=== PATIENT | female | born 1940 | race Caucasian/White ===

== ENCOUNTER 2018-02-12 15:51 | Inpatient (IN) | payer BC, MEDICARE ==
[~2018-02-12] VITALS: Ht 177.8 cm; Wt 70.3 kg
[2018-02-12] MEDS ORDERED: ONDANSETRON HCL/PF 4 MG/2 ML VIAL IVP ONE (16:30)
[2018-02-12] MEDS ORDERED: MORPHINE SULFATE INJ 2 MG/ML DISP.SYRIN IV ONE ×2 (16:30→18:00)
[2018-02-12 16:34] LABS: BASOPHILS % (AUTO) 0.9 % (0.0-2.0); EOSINOPHILS % (AUTO) 1.9 % (0.0-6.0); HEMATOCRIT 33 % (33-45); HEMOGLOBIN 11.1 g/dL (11.5-14.8); LYMPHOCYTES # (AUTO) 1.4 /CMM (0.8-4.8); LYMPHOCYTES % (AUTO) 29.3 % (20.0-44.0); MEAN CORPUSCULAR HGB CONC 34 g/dl (31.0-36.0); MEAN CORPUSCULAR VOLUME 91 fL (82-100); MONOCYTES # (AUTO) 0.4 /CMM (0.1-1.30); MONOCYTES % (AUTO) 8.8 % (2.0-12.0); NEUTROPHILS # (AUTO) 2.9 /CMM (1.8-8.9); NEUTROPHILS % (AUTO) 59.1 % (43.0-81.0); PLATELET COUNT (AUTO) 131 /CMM (150-450); RDW COEFFICIENT OF VARIATION 13.4 (11.5-15.0); RED BLOOD CELL COUNT(AUTO) 3.59 MIL/uL (4.0-5.2); WHITE BLOOD COUNT (AUTO) 4.8 K/uL (4.3-11.0)
[2018-02-12] MEDS ORDERED: MORPHINE SULFATE INJ 2 MG/ML DISP.SYRIN ONE (16:38)
[2018-02-12] MEDS ORDERED: ONDANSETRON HCL/PF 4 MG/2 ML VIAL ONE (16:38)
[2018-02-12 16:41] LABS: CARBON DIOXIDE 28 mmol/L (21-32); CHLORIDE 105 mmol/L (98-107); CREATININE 0.9 mg/dL (0.6-1.3); GLUCOSE 152 mg/dL (74-106); POTASSIUM 3.5 mmol/L (3.5-5.1); SODIUM SERUM 142 mmol/L (136-145); UREA NITROGEN, BLOOD 15 mg/dL (7-18)
[2018-02-12 16:46] LABS: INR 1.37 (0.85-1.15)
[2018-02-12 16:48] LABS: ALANINE AMINOTRANSFERASE 17 U/L (12-78); ALBUMIN 3.8 g/dL (3.4-5.0); ALKALINE PHOSPHATASE 81 U/L (46-116); ASPARTATE AMINOTRANSFERASE 21 U/L (15-37); BILIRUBIN,DIRECT 0.3 mg/dL (0.0-0.2); BILIRUBIN,TOTAL 1.3 mg/dL (0.2-1.0); TOTAL PROTEIN, SERUM 6.6 g/dL (6.4-8.2)
[2018-02-12] MEDS ORDERED: POTA10TA15 PO (16:49)
[2018-02-12] MEDS ORDERED: RIVA10TA PO (16:49)
[2018-02-12] MEDS ORDERED: FURO-144 PO (16:49)
[2018-02-12] MEDS ORDERED: METO25TA6 PO (16:49)
[2018-02-12] MEDS ORDERED: FLUO10TA PO (16:49)
[2018-02-12] MEDS ORDERED: TRAZ-214 PO (16:49)
--- NOTE | 2018-02-12 16:54 | NUR ---
BIB R/A C/O R HIP PAIN AND DEFORMITY S/P TRIP AND FALL . PT AAOX3, LEGALLY BLIND. DENIES CP, SOB, DIZZINESS, N/V @ THIS TIME. MEDICATED FOR PAIN PER MD'S ORDER. GRAND DAUGHTER @ BS & WILL CONT TO MONITOR.
--- NOTE | 2018-02-12 16:58 | NUR ---
CALLED [facility] TECHNICIAN FOR A BED.
--- NOTE | 2018-02-12 16:58 | NUR ---
CALLED [employer] AUTO APPRENTICE MECHANIC WAS PAGED.
[2018-02-12] MEDS ORDERED: BIMA2.5D5 EACHEYE (17:01)
[2018-02-12] MEDS ORDERED: BRIM5DRO2 EACHEYE (17:01)
--- NOTE | 2018-02-12 17:17 | NUR ---
CALLED JULIO HORVATH, MILITARY PAY TECHNICIAN WAS PAGED.
--- NOTE | 2018-02-12 17:21 | NUR ---
DR CORMIER CALLED ON THE PHONE WITH DR ALVARADO.
[2018-02-12] MEDS ORDERED: MORPHINE SULFATE INJ 4 MG/ML DISP.SYRIN ONE (18:01)
[2018-02-12] MEDS ORDERED: ACETAMINOPHEN 325 MG TABLET PO PRN (18:30)
[2018-02-12] MEDS ORDERED: MAG HYDROX/AL HYDROX/SIMETH 30 ML UDC PO PRN (18:30)
[2018-02-12] MEDS ORDERED: MAGNESIUM HYDROXIDE 30 ML UDC PO PRN (18:30)
[2018-02-12] MEDS ORDERED: Z GUARD REMEDY 2 OZ OINT TP PRN (18:30)
[2018-02-12 18:41] LABS: TROPONIN I < 0.017 ng/mL (0.00-0.056)
[2018-02-12 18:48] LABS: CHOLESTEROL 122 mg/dL (<200); HDL CHOLESTEROL 53 mg/dL (40-60); IRON, SERUM 61 ug/dl (50-175); LDL 72 mg/dL (0-99); THYROID STIMULATING HORMONE 2.588 uIU/mL (0.358-3.74); TOTAL IRON BINDING CAPACITY 315 ug/dl (250-450); TRIGLYCERIDES 41 mg/dL (30-150)
[2018-02-12 18:53] LABS: MAGNESIUM 1.9 mg/dL (1.8-2.4); PHOSPHORUS 2.8 mg/dL (2.5-4.9)
--- NOTE | 2018-02-12 19:30 | NUR ---
MS RN OPENING NOTES: RECEIVED PT ON ROOM AIR AND IS TOLERATING WELL. FAMILY MEMBER AT BEDSIDE. PT IS A/OX3 BUT IS LEGALLY BLIND IN BOTH EYES. PT HAS AVALOS CATH AND IS ATTACHED TO DRAINAGE BAG WITH YELLOW URINE DRAINING. PT HAS IV ON R WRIST #16G AND IS PATENT AND INTACT. PT TO BE STARTED ON IV FLUIDS SOON. PT COMPLAINING OF 7/10 R HIP PAIN. CALL LIGHT WITHIN PT'S REACH. BED KEPT IN LOW, LOCKED POSITION, AND SIDE RAILS X 2UP. WILL CONTINUE TO MONITOR PT.
[2018-02-12 20:00] VITALS: BP 177/67
[2018-02-12] MEDS: METOPROLOL TARTRATE 25 MG TABLET PO SCH (20:13)
[2018-02-12] MEDS: IV NS 0.9% 1,000 ML IV PRN (20:15)
[2018-02-12] MEDS: TRAZODONE 50 MG TABLET PO SCH (21:23)
[2018-02-12] MEDS: LATANOPROST EYE DROP 0.005% 2.5 ML BOTTLE EACHEYE SCH (21:23)
[2018-02-12] MEDS: MORPHINE SULFATE INJ 2 MG/ML DISP.SYRIN IV PRN (23:22)
[2018-02-12] MEDS: ONDANSETRON HCL/PF 4 MG/2 ML VIAL IVP PRN (23:28)
[2018-02-13 05:16] VITALS: BP 113/67
[2018-02-13] MEDS: IV NS 0.9% 1,000 ML IV PRN ×3 (05:42→22:45)
--- NOTE | 2018-02-13 06:21 | NUR ---
MS RN NOTES: BILATERAL EARRINGS PLACED IN GREEN CONTAINER WITH LABEL ON IT.
--- NOTE | 2018-02-13 06:43 | NUR ---
MS RN CLOSING NOTES: ALL NEEDS WERE ATTENDED AND ANTICIPATED FOR. PT KEPT CLEAN, DRY, AND COMFORTABLE. PT RESTING IN BED COMFORTABLY AT THIS TIME. PT HAS IV AND IS BEING INFUSED WITH IV NS AT 125ML/HR. PT ALSO HAS AVALOS CATH AND IS ATTACHED TO DRAINAGE BAG WITH YELLOW URINE DRAINING. OUTPUT WAS 450ML. OFFERED PT PAIN MEDICATIONS BUT IS OK FOR NOW. CALL LIGHT WITHIN PT'S REACH. BED KEPT IN LOW, LOCKED POSITION, AND SIDE RAILS X 2UP. WILL ENDORSE TO AM NURSE FOR RENEA.
--- NOTE | 2018-02-13 07:15 | NUR ---
RN OPENING NOTES RECEIVED PATIEN T IN BED RESTING, A/OX3, ABLE TO MAKE NEEDS KNOWN. NOTED PATIENT IS LEGALLY BLIND. NO ACUTE DISTRESS, NO SOB. COMPLAINTS OF PAIN 8/10 ACHING ON RIGHT HIP, WILL ADMINISTER PAIN MEDICATION ORDERED. IV SITE INTACT AND PATENT, IVF INFUSING. AVALOS CATH IN PLACED DRAINING YELLOW CLEAR URINE. KEPT PATIENT SAFE AND COMFORTABLE. BED IN LOW/LOCKED POSITION, SIDERAILS UPX2, CALL LIGHT IN REACH. WILL CONTINUE TO MONIOTR ACCORDINGLY.
[2018-02-13] MEDS: MORPHINE SULFATE INJ 2 MG/ML DISP.SYRIN IV PRN (07:27)
[2018-02-13 08:00] VITALS: BP 126/59
[2018-02-13] MEDS: METOPROLOL TARTRATE 25 MG TABLET PO SCH ×2 (08:19→16:39)
[2018-02-13] MEDS: Fluoxetine 10 mg capsule PO SCH (08:19)
[2018-02-13] MEDS: BRIMONIDINE TARTRATE OPHT SOLN 5 ML BOTTLE EACHEYE SCH ×2 (08:20→16:40)
[2018-02-13] MEDS: TIMOLOL 0.5% SOLN OPHTH 5 ML BOTTLE EACHEYE SCH ×2 (08:21→16:40)
[2018-02-13 08:50] LABS: BASOPHILS % (AUTO) 0.6 % (0.0-2.0); EOSINOPHILS % (AUTO) 1.5 % (0.0-6.0); HEMATOCRIT 30 % (33-45); HEMOGLOBIN 9.7 g/dL (11.5-14.8); LYMPHOCYTES # (AUTO) 1.1 /CMM (0.8-4.8); LYMPHOCYTES % (AUTO) 20.6 % (20.0-44.0); MEAN CORPUSCULAR HGB CONC 33 g/dl (31.0-36.0); MEAN CORPUSCULAR VOLUME 93 fL (82-100); MONOCYTES # (AUTO) 0.6 /CMM (0.1-1.30); MONOCYTES % (AUTO) 10.1 % (2.0-12.0); NEUTROPHILS # (AUTO) 3.7 /CMM (1.8-8.9); NEUTROPHILS % (AUTO) 67.2 % (43.0-81.0); PLATELET COUNT (AUTO) 117 /CMM (150-450); RDW COEFFICIENT OF VARIATION 14.6 (11.5-15.0); WHITE BLOOD COUNT (AUTO) 5.5 K/uL (4.3-11.0)
[2018-02-13 08:55] LABS: ALANINE AMINOTRANSFERASE 13 U/L (12-78); ALBUMIN 3.2 g/dL (3.4-5.0); ALKALINE PHOSPHATASE 65 U/L (46-116); ASPARTATE AMINOTRANSFERASE 20 U/L (15-37); BILIRUBIN,TOTAL 0.8 mg/dL (0.2-1.0); CALCIUM, SERUM 8.4 mg/dL (8.5-10.1); CARBON DIOXIDE 26 mmol/L (21-32); CHLORIDE 106 mmol/L (98-107); CREATININE 0.7 mg/dL (0.6-1.3); GLUCOSE 106 mg/dL (74-106); MAGNESIUM 1.8 mg/dL (1.8-2.4); PHOSPHORUS 3.3 mg/dL (2.5-4.9); POTASSIUM 3.6 mmol/L (3.5-5.1); SODIUM SERUM 139 mmol/L (136-145); TOTAL PROTEIN, SERUM 5.9 g/dL (6.4-8.2); UREA NITROGEN, BLOOD 12 mg/dL (7-18)
[2018-02-13 08:59] LABS: THYROID STIMULATING HORMONE 1.538 uIU/mL (0.358-3.74)
[2018-02-13] MEDS: LISINOPRIL (10MG) 10 MG TABLET PO SCH (09:23)
--- NOTE | 2018-02-13 10:00 | NUR ---
DVT PUMPS ON
--- NOTE | 2018-02-13 12:00 | NUR ---
RN NOTES FOR SURGERY TOMORROW PER DR CORMIER. CONSENTS SIGNED.
[2018-02-13 13:05] LABS: ALBUMIN 3.3 g/dL (3.4-5.0); BILIRUBIN,DIRECT 0.2 mg/dL (0.0-0.2); BILIRUBIN,TOTAL 0.8 mg/dL (0.2-1.0); TOTAL PROTEIN, SERUM 5.9 g/dL (6.4-8.2)
[2018-02-13 15:31] VITALS: BP 134/70
[2018-02-13] MEDS: MORPHINE SULFATE INJ 4 MG/ML DISP.SYRIN IV PRN ×2 (15:35→20:37)
--- NOTE | 2018-02-13 18:47 | NUR ---
RN CLOSING NOTES PATIENT IN STABLE CONDITION. ALL NEEDS ATTENDED AND PROVIDED. ALL DUE AND PRN MEDICATIONS GIVEN ORDERED. KEPT PATIENT SAFE AND COMFORTABLE. BED IN LOW/LOCKED POSITION, SIDERSAILS UPX2, SEMIFOWLERS, CALL LIGHT IN REACH. WILL ENDORSE TO NIGHT RN FOR RENEA.
--- NOTE | 2018-02-13 19:22 | NUR ---
MS RN OPENING NOTES: RECEIVED PT AND IS ON ROOM AIR AND IS TOLERATING WELL. FAMILY MEMBER IS AT BEDSIDE. EXPLAINED TO PT THAT AFTER MIDNIGHT SHE IS NOT TO HAVE ANYTHING TO EAT OR DRINK SHE IS TO GO FOR PROCEDURE TOMORROW. PT IS A/OX3. PT HAS AVALOS CATH AND IS ATTACHED TO DRAINAGE BAG WITH YELLOW URINE DRAINING. PT HAS IV ON L ARM #18G AND IS BEING INFUSED WITH IV NS AT 125ML/HR. BILATERAL SCD PUMPS IN PLACE. CALL LIGHT WITHIN PT'S REACH. BED KEPT IN LOW, LOCKED POSITION, AND SIDE RAILS X2UP. WILL CONTINUE TO MONITOR PT.
[2018-02-13] MEDS: ONDANSETRON HCL/PF 4 MG/2 ML VIAL IVP PRN (20:38)
[2018-02-13 21:02] VITALS: BP 107/55
[2018-02-13] MEDS: TRAZODONE 50 MG TABLET PO SCH (21:31)
[2018-02-13] MEDS: LATANOPROST EYE DROP 0.005% 2.5 ML BOTTLE EACHEYE SCH (21:31)
[2018-02-14 05:34] LABS: CALCIUM, SERUM 8.5 mg/dL (8.5-10.1); CARBON DIOXIDE 26 mmol/L (21-32); CHLORIDE 107 mmol/L (98-107); CREATININE 0.7 mg/dL (0.6-1.3); GLUCOSE 93 mg/dL (74-106); POTASSIUM 3.7 mmol/L (3.5-5.1); SODIUM SERUM 138 mmol/L (136-145); UREA NITROGEN, BLOOD 10 mg/dL (7-18)
[2018-02-14] MEDS: ONDANSETRON HCL/PF 4 MG/2 ML VIAL IVP PRN (05:37)
[2018-02-14] MEDS: MORPHINE SULFATE INJ 4 MG/ML DISP.SYRIN IV PRN (05:38)
[2018-02-14 06:01] LABS: BASOPHILS % (AUTO) 0.6 % (0.0-2.0); EOSINOPHILS % (AUTO) 2.9 % (0.0-6.0); HEMATOCRIT 27 % (33-45); HEMOGLOBIN 9.1 g/dL (11.5-14.8); LYMPHOCYTES % (AUTO) 23.3 % (20.0-44.0); MEAN CORPUSCULAR HGB CONC 33 g/dl (31.0-36.0); MEAN CORPUSCULAR VOLUME 94 fL (82-100); MONOCYTES # (AUTO) 0.4 /CMM (0.1-1.30); MONOCYTES % (AUTO) 9.9 % (2.0-12.0); NEUTROPHILS # (AUTO) 2.7 /CMM (1.8-8.9); NEUTROPHILS % (AUTO) 63.3 % (43.0-81.0); PLATELET COUNT (AUTO) 92 /CMM (150-450); RDW COEFFICIENT OF VARIATION 14.5 (11.5-15.0); RED BLOOD CELL COUNT(AUTO) 2.93 MIL/uL (4.0-5.2); WHITE BLOOD COUNT (AUTO) 4.2 K/uL (4.3-11.0)
--- NOTE | 2018-02-14 07:01 | NUR ---
MS RN CLOSING NOTES: ALL NEEDS WERE ATTENDED AND ANTICIPATED FOR. PT KEPT CLEAN, DRY, AND COMFORTABLE. PT TURNED AND REPOSITIONED PER PROTOCOL. PT REMAINS ON ROOM AIR AND IS TOLERATING WELL. PT ON BILATERAL SCD PUMPS. PT HAS IV AND IS BEING INFUSED WITH IV NS AT 125ML/HR. CALL LIGHT WITHIN PT'S REACH. BED KEPT IN LOW, LOCKED POSITION, AND SIDE RAILS X 2UP. ENDORSED TO AM NURSE FOR RENEA.
--- NOTE | 2018-02-14 07:27 | NUR ---
RN OPENING NOTES RECEIVED PATIENT IN BED RESTING, A/OX3, ABLE TO MAKE NEEDS KNOWN. NOTED PATIENT IS LEGALLY BLIND. NO ACUTE DISTRESS, NO SOB. NO COMPLAINTS OF PAIN OR DISCOMFORT AT THE MOMENT. IV SITE INTACT AND PATENT, IVF INFUSING. AVALOS CATH IN PLACED DRAINING YELLOW CLEAR URINE. KEPT PATIENT SAFE AND COMFORTABLE. BED IN LOW/LOCKED POSITION, SIDERAILS UPX2, CALL LIGHT IN REACH. KEPT NPO. WILL CONTINUE TO MONIOTR ACCORDINGLY.
[2018-02-14 08:00] VITALS: BP 146/73
[2018-02-14] MEDS: IV NS 0.9% 1,000 ML IV PRN (08:34)
[2018-02-14] MEDS: TIMOLOL 0.5% SOLN OPHTH 5 ML BOTTLE EACHEYE SCH ×2 (08:35→17:48)
[2018-02-14] MEDS: BRIMONIDINE TARTRATE OPHT SOLN 5 ML BOTTLE EACHEYE SCH ×2 (08:35→17:48)
[2018-02-14] MEDS: METOPROLOL TARTRATE 25 MG TABLET PO SCH ×2 (09:00→17:00)
[2018-02-14] MEDS: LISINOPRIL (10MG) 10 MG TABLET PO SCH (09:00)
[2018-02-14] MEDS: Fluoxetine 10 mg capsule PO SCH (09:00)
[2018-02-14] MEDS ORDERED: ANESTHESIA TRAY IN PYXIS 1 EA TRAY MC ONE (12:21)
[2018-02-14] MEDS ORDERED: BUPIVACAINE 0.75% DEXT-PF 2 ML AMPUL ONE (12:39)
[2018-02-14] MEDS ORDERED: FENTANYL PF 100MCG/2ML AMPUL ONE (12:40)
[2018-02-14] MEDS ORDERED: MIDAZOLAM HCL 2 MG/2ML VIAL ONE (12:41)
--- NOTE | 2018-02-14 12:58 | NUR ---
RN NOTES PICKED UP FOR SURGERY BY OR NURSE.
[2018-02-14] MEDS ORDERED: ROCURONIUM BROMIDE 50 MG/5 ML ONE ×2 (13:13→13:47)
[2018-02-14] MEDS ORDERED: BACITRACIN 50000 UNITS/VIAL ONE (13:54)
[2018-02-14] MEDS ORDERED: BUPIVACAINE 0.5 % PF 150 MG/30 ML VIAL ONE (13:54)
[2018-02-14] MEDS ORDERED: MEPERIDINE HCL/PF 100 MG/ML DISP.SYRIN ONE (15:43)
[2018-02-14] MEDS ORDERED: MORPHINE SULFATE INJ 4 MG/ML DISP.SYRIN IV PRN (16:30)
[2018-02-14] MEDS ORDERED: ACETAMINOPHEN 325 MG TABLET PO PRN (16:30)
[2018-02-14 17:00] VITALS: BP 148/79
[2018-02-14] MEDS: CALCIUM CARB 600MG /VIT D 1 EACH TABLET PO SCH (17:00)
--- NOTE | 2018-02-14 17:00 | NUR ---
PATIENT CAME BACK FROM SURGERY. VS STABLE. SEDATED. RESPONSIVE ABLE FOLLOW COMMANDS, A/OX4. FAMILY AT BEDSIDE. AVALOS IN PLACE, SCD PUMP ON. NOTED 3 SURGICAL INCISION ON RIGHT LATERAL UPPER EXTREMITY, C/D/I DRESSING. WILL MONITOR ACCORDINGLY.
--- NOTE | 2018-02-14 18:55 | NUR ---
PATIENT IN STABLE CONDITION. FAMILY AT BEDSIDE. ALL NEEDS ATTENDED AND PROVIDED. ALL DUE MEDICATIONS GIVEN ORDERED. KEPT PTAIENT SAFE AND COMFORTABLE. TURNED AND REPOSITIONED PATIENT EVERY 2 HRS NEEDED. KEPT PATIENT SAFE AND COMFORTABLE. BED IN LOW/LOCKED POSITION, SIDERAILS UPX2, CALL LIGHT IN REACH. WILL ENDORSED TO NIGHT RN FOR RENEA.
--- NOTE | 2018-02-14 19:17 | NUR ---
MS RN OPENING NOTES: RECEIVED PT ON 2LPM VIA NC. PT IS S/P SURGERY DAY 1. PT AWAKE AND SPEAKING WITH FAMILY MEMBERS. PT HAS IV AND IS BEING INFUSED AT NS 125ML/HR. FAMILY AT BEDSIDE. PT HAS AVALOS CATH AND IS ATTACHED TO DRAINAGE BAG WITH YELLOW URINE DRAINING. CALL LIGHT WITHIN PT'S REACH. BED KEPT IN LOW, LOCKED POSITION, AND SIDE RAILS X 2UP. PT ON BILATERAL SCD PUMPS. WILL CONTINUE TO MONITOR PT.
[2018-02-14 20:00] VITALS: BP 150/81
[2018-02-14] MEDS: CEFAZOLIN 2 GM in IV D5W 50 ML IV SCH (20:29)
[2018-02-14] MEDS: TRAZODONE 50 MG TABLET PO SCH (21:37)
[2018-02-14] MEDS: LATANOPROST EYE DROP 0.005% 2.5 ML BOTTLE EACHEYE SCH (21:37)
[2018-02-14] MEDS: TRAMADOL HCL 50 MG TABLET PO PRN (23:26)
--- NOTE | 2018-02-14 23:26 | NUR ---
RN MS NOTES PATIENT COMPLAINT OF PAIN 7/10 TO RIGHT HIP.PATIENT IS POST OP. ULTRAM OFFERED, PRN GIVEN ORDERED, VITAL SIGNS WITHIN NORMAL LIMITS.
[2018-02-15] MEDS: IV NS 0.9% 1,000 ML IV PRN (01:17)
[2018-02-15] MEDS: TRAMADOL HCL 50 MG TABLET PO PRN ×2 (03:48→12:23)
[2018-02-15] MEDS: CEFAZOLIN 2 GM in IV D5W 50 ML IV SCH ×2 (04:00→12:23)
--- NOTE | 2018-02-15 06:49 | NUR ---
MS RN CLOSING NOTES: ALL NEED WERE ATTENDED AND ANTICIPATED FOR. PT KEPT CLEAN, DRY, AND COMFORTABLE. ICE PACK PLACED ON RIGHT HIP. PT IS ON 2LPM VIA NC AND IS TOLERATING WELL. PT HAS PERIODS OF FORGETFULNESS AND NEEDS CONSTANT REMINDERS. PT HAS AVALOS CATH AND IS ATTACHED TO DRAINAGE BAG WITH YELLOW URINE DRAINING. OUTPUT WAS 400ML. R HIP SURGERY SITE HAS [address] AND KEPT CLEAN AND DRY. PT HAS IV ON L ARM AND IS BEING INFUSED WITH IV NS AT 125ML/HR. BILATERAL SCD PUMPS IN PLACE. CALL LIGHT WITHIN PT'S REACH. BED KEPT IN LOW, LOCKED POSITION, AND SIDE RAILS X 2UP. WILL ENDORSE TO AM NURSE FOR RENEA.
--- NOTE | 2018-02-15 07:00 | NUR ---
MS RN OPENING NOTE RECEIVED PT IN BED, ALERT AND ORIENTED X 2-3, DENIES N/C, CHEST PAIN, SOB, NO SIGNS OF ACUTE DISTRESS AT THIS TIME. BREATHING IS EVEN AND UNLABORED ON 2L NC. PT RATES PAIN IN THE RIGHT HIP 5/10 AND TOLERABLE. L ARM #18G IV IS INFUSING NS @ 125ML/HR WITHOUT REDNESS OR SWELLING. AVALOS CATHETER IS NOTED TO BE DRAINING CLEAR, YELLOW URINE. RIGHT HIP DRESSING IS CLEAN, DRY AND INTACT, NEUROVASCULAR STATUS IS INTACT. ALL NEEDS ATTENDED TO. BED IS LOCKED AND IN LOWEST POSITION, SIDE RAILS UP X2, BED ALARM IS ON, CALL LIGHT IS WITHIN REACH.
[2018-02-15 08:00] VITALS: BP 134/58
[2018-02-15] MEDS: BRIMONIDINE TARTRATE OPHT SOLN 5 ML BOTTLE EACHEYE SCH ×2 (08:20→17:44)
[2018-02-15] MEDS: METOPROLOL TARTRATE 25 MG TABLET PO SCH ×2 (08:20→17:00)
[2018-02-15] MEDS: CALCIUM CARB 600MG /VIT D 1 EACH TABLET PO SCH ×2 (08:20→17:41)
[2018-02-15] MEDS: TIMOLOL 0.5% SOLN OPHTH 5 ML BOTTLE EACHEYE SCH ×2 (08:20→17:44)
[2018-02-15] MEDS: Fluoxetine 10 mg capsule PO SCH (08:20)
--- NOTE | 2018-02-15 09:10 | NUR ---
MS RN PT AT THE BEDSIDE PHYSICAL THERAPIST AT THE BEDSIDE TO EVALUATE PATIENT. PT ABLE TO DANGLE FEET, UNABLE TO STAND OR AMBULATE WITH ASSISTANCE. PT ASSISTED BACK TO BED, NO SIGNS OF ACUTE DISTRESS. WILL CONTINUE TO MONITOR.
--- NOTE | 2018-02-15 10:00 | NUR ---
MS RN. DR CORMIER AT THE BEDSIDE DR. CORMIER AT THE BEDSIDE TO DISCUSS PLAN OF CARE WITH PATIENT. PER DR. CORMIER, OKAY TO [place]/C [facility]BIE TOMORROW (02/16), POST OP DAY 2. ORDERS RECEIVED TO CHANGE TYLENOL 650MG FROM PRN TO ROUTINE Q6H.
--- NOTE | 2018-02-15 10:00 | NUR ---
MS RN PT REFUSING TO BE REPOSITIONED PT REFUSING TO BE REPOSITIONED, STATED "I DON'T WANT TO RIGHT NOW". RISKS AND BENEFITS EXPLAINED, PT STILL DECLINED.
[2018-02-15] MEDS: LISINOPRIL (10MG) 10 MG TABLET PO SCH (10:43)
[2018-02-15 11:24] LABS: BASOPHILS # (AUTO) 0.1 /CMM (0.0-0.2); BASOPHILS % (AUTO) 0.6 % (0.0-2.0); EOSINOPHILS % (AUTO) 2.3 % (0.0-6.0); HEMATOCRIT 25 % (33-45); HEMOGLOBIN 8.1 g/dL (11.5-14.8); LYMPHOCYTES # (AUTO) 1.4 /CMM (0.8-4.8); LYMPHOCYTES % (AUTO) 14.4 % (20.0-44.0); MEAN CORPUSCULAR HGB CONC 33 g/dl (31.0-36.0); MEAN CORPUSCULAR VOLUME 95 fL (82-100); MONOCYTES # (AUTO) 0.9 /CMM (0.1-1.30); MONOCYTES % (AUTO) 9.3 % (2.0-12.0); NEUTROPHILS # (AUTO) 7.1 /CMM (1.8-8.9); NEUTROPHILS % (AUTO) 73.4 % (43.0-81.0); PLATELET COUNT (AUTO) 139 /CMM (150-450); RDW COEFFICIENT OF VARIATION 14.5 (11.5-15.0); RED BLOOD CELL COUNT(AUTO) 2.58 MIL/uL (4.0-5.2); WHITE BLOOD COUNT (AUTO) 9.7 K/uL (4.3-11.0)
[2018-02-15 11:32] LABS: CALCIUM, SERUM 8.2 mg/dL (8.5-10.1); CARBON DIOXIDE 23 mmol/L (21-32); CHLORIDE 103 mmol/L (98-107); CREATININE 0.9 mg/dL (0.6-1.3); GLUCOSE 154 mg/dL (74-106); POTASSIUM 3.5 mmol/L (3.5-5.1); SODIUM SERUM 132 mmol/L (136-145); UREA NITROGEN, BLOOD 12 mg/dL (7-18)
[2018-02-15] MEDS: ACETAMINOPHEN 325 MG TABLET PO SCH ×3 (12:23→23:26)
--- NOTE | 2018-02-15 13:00 | NUR ---
MS RN PHYSICAL THERAPIST AT THE BEDSIDE PHYSICAL THERAPIST AT THE BEDSIDE. PT ABLE TO DANGLE FEET AND STAND WITH ASSIST. PT UNABLE TO AMBULATE. PT SAFELY ASSISTED TO BED, NO SIGNS OF ACUTE DISTRESS. WILL CONTINUE TO MONITOR.
[2018-02-15 16:00] VITALS: BP 95/45
[2018-02-15 17:00] VITALS: BP 99/51
[2018-02-15] MEDS: RIVAROXABAN 10 MG TABLET PO SCH (17:50)
--- NOTE | 2018-02-15 18:15 | NUR ---
MS RN PAGED ANGELICA CARBONE DNP PAGED ANGELICA CARBONE DNP REGARDING PT LOW BP AND FLUCTUATING MENTAL STATUS. AWAITING RESPONSE AND ORDERS.
--- NOTE | 2018-02-15 18:20 | NUR ---
MS RN ORDERS RECIEVED ORDERS RECEIVED FROM ANGELICA CARBONE DNP FOR A STAT LACTIC ACID DRAW AND NS @ 125ML/HR X 1 AFTER LAB DRAW.
[2018-02-15] MEDS ORDERED: IV NS 0.9% 1,000 ML IV ONE (18:30)
--- NOTE | 2018-02-15 19:00 | NUR ---
MS RN OPENING NOTES Received patient awake on abdi's position with right leg elevated with pillow. With patent peripheral IV line L arm G#18 with NS infusing well @ 125ml/hr. With patent indwelling FC with clear yellow urine output. with clean, intact, dry dressing on the right thigh. With complaints of pain on tolerable level level, ice pack on right hip. With O2 inhalation via NC tolerating well @ 2LPM. With lactic acid still pending at this time. Call light at bedside, bed kept low and lock with siderails x2 up. Will continue to monitor accordingly.
--- NOTE | 2018-02-15 19:01 | NUR ---
MS RN CLOSING NOTE PT IN BED, ALERT AND ORIENTED X 2-3. DENIES N/V, CHEST PAIN, SOB. BREATHING IS EVEN AND UNLABORED ON 2L NC, NO SIGNS OF ACUTE DISTRESS AT THIS TIME. LACTIC ACID DRAWN BY LAB AND PENDING. NS @ 125 ML/HR X 1 STARTED IN L FA # 18G WITHOUT REDNESS OR SWELLING. GRANDDAUGHTER IS AT THE BEDSIDE. PT REFUSED Q2H REPOSITIONING THROUGHOUT THE SHIFT. ALLOWED NURSE AND NURSE BEADING SAWYER TO REPOSITION INTERMITTENTLY. RISKS AND BENEFITS EXPLAINED, PT STILL DECLINED. BED IS LOCKED AND IN LOWEST POSITION, SIDE RAILS UP X2, BED ALARM IS ON, CALL LIGHT IS WITHIN REACH.
[2018-02-15 20:00] VITALS: BP 105/53
[2018-02-15 21:13] LABS: APPEARANCE,URINE CLEAR (CLEAR); BILIRUBIN,URINE NEGATIVE (NEGATIVE); BLOOD, URINE 2+ Ery/uL (NEGATIVE); COLOR,URINE YELLOW (YELLOW); KETONES,URINE NEGATIVE (NEGATIVE); LEUKOCYTE ESTERASE ,URINE 1+ (NEGATIVE); NITRITE, URINE NEGATIVE (NEGATIVE); PROTEIN,URINE TRACE mg/dl (NEGATIVE); UGLUCOSE NEGATIVE (NEGATIVE)
[2018-02-15 21:29] LABS: BACTERIA,URINE Few /HPF (None Seen); SQUAMOUS EPITHELIAL CELL,UR Few /HPF (None Seen)
[2018-02-15] MEDS: TRAZODONE 50 MG TABLET PO SCH (21:36)
[2018-02-15] MEDS: LATANOPROST EYE DROP 0.005% 2.5 ML BOTTLE EACHEYE SCH (21:36)
[2018-02-16] MEDS: ACETAMINOPHEN 325 MG TABLET PO SCH ×4 (05:43→23:52)
--- NOTE | 2018-02-16 06:38 | NUR ---
MS RN CLOSING NOTES Patient asleep on semi-Kay's position, with patent peripheral IV line L arm G#18, SL. With patent indwelling FC with clear yellow urine output of 900ml. All due meds given, tolerated well, no ASE noted. Denies discomfort at this time. On RA, no SOB/dyspnea at this time. All needs attended. Kept clean and dry. Endorsed to the next shift.
[2018-02-16 06:53] LABS: BASOPHILS % (AUTO) 0.4 % (0.0-2.0); EOSINOPHILS % (AUTO) 0.9 % (0.0-6.0); HEMATOCRIT 41 % (33-45); HEMOGLOBIN 13.3 g/dL (11.5-14.8); LYMPHOCYTES # (AUTO) 1.5 /CMM (0.8-4.8); LYMPHOCYTES % (AUTO) 11.7 % (20.0-44.0); MEAN CORPUSCULAR HGB CONC 33 g/dl (31.0-36.0); MEAN CORPUSCULAR VOLUME 91 fL (82-100); MONOCYTES # (AUTO) 1.1 /CMM (0.1-1.30); MONOCYTES % (AUTO) 8.3 % (2.0-12.0); NEUTROPHILS % (AUTO) 78.7 % (43.0-81.0); PLATELET COUNT (AUTO) 249 /CMM (150-450); RDW COEFFICIENT OF VARIATION 15.5 (11.5-15.0); RED BLOOD CELL COUNT(AUTO) 4.49 MIL/uL (4.0-5.2); WHITE BLOOD COUNT (AUTO) 12.8 K/uL (4.3-11.0)
[2018-02-16 06:59] LABS: CALCIUM, SERUM 8.9 mg/dL (8.5-10.1); CARBON DIOXIDE 23 mmol/L (21-32); CHLORIDE 102 mmol/L (98-107); CREATININE 0.8 mg/dL (0.6-1.3); GLUCOSE 162 mg/dL (74-106); POTASSIUM 3.9 mmol/L (3.5-5.1); SODIUM SERUM 138 mmol/L (136-145); UREA NITROGEN, BLOOD 13 mg/dL (7-18)
--- NOTE | 2018-02-16 07:00 | NUR ---
MS RN OPENING NOTE RECEIVED PT IN BED SLEEPING. BREATHING IS EVEN AND UNLABORED ON ROOM AIR. NO SIGNS OF ACUTE DISTRESS AT THIS TIME. L ARM #18G IV IS SALINE LOCKED, CLEAN, DRY AND INTACT. SCD'S ARE IN PLACE. ALL NEEDS ATTENDED TO. BED IS LOCKED AND IN LOWEST POSITION, SIDE RAILS UP X2, BED ALARM IS ON, CALL LIGHT IS WITHIN REACH.
[2018-02-16 08:00] VITALS: BP 137/58
[2018-02-16] MEDS: CALCIUM CARB 600MG /VIT D 1 EACH TABLET PO SCH ×2 (08:29→17:29)
[2018-02-16] MEDS: LISINOPRIL (10MG) 10 MG TABLET PO SCH (08:29)
[2018-02-16] MEDS: METOPROLOL TARTRATE 25 MG TABLET PO SCH ×2 (08:30→17:00)
[2018-02-16] MEDS: Fluoxetine 10 mg capsule PO SCH (08:30)
[2018-02-16] MEDS: BRIMONIDINE TARTRATE OPHT SOLN 5 ML BOTTLE EACHEYE SCH ×2 (08:39→17:29)
[2018-02-16] MEDS: TIMOLOL 0.5% SOLN OPHTH 5 ML BOTTLE EACHEYE SCH ×2 (08:39→17:29)
--- NOTE | 2018-02-16 09:41 | NUR ---
MS RN . DR. ROTHMAN AT THE BEDSIDE DR. ROTHMAN AT THE BEDSIDE FOR NEUROLOGY CONSULT, ORDERS FOR HEAD CT W/OUT CONTRAST OBTAINED.
[2018-02-16] MEDS: TRAMADOL HCL 50 MG TABLET PO PRN (10:28)
[2018-02-16] MEDS ORDERED: CEPHALEXIN MONOHYDRATE 500 MG CAPSULE PO SCH (10:30)
--- NOTE | 2018-02-16 10:30 | NUR ---
MS RN PHYSICAL THERAPIST AT THE BEDSIDE PHYSICAL THERAPIST AT THE BEDSIDE. PT ABLE TO SIT UP AT THE EDGE OF BED BUT UNABLE TO STAND OR AMBULATE. PT ASSISTED BACK TO BED, SAFETY PRECAUTIONS MAINTAINED.
--- NOTE | 2018-02-16 11:00 | NUR ---
MS RN D/C AVALOS AVALOS REMOVED PER POST OP PROTOCOL. OUT PUT FROM AVALOS: 225ML. VOIDING TRIAL INITIATED, PT PLACED IN CLEAN DIAPER AND LISA. WILL CONTINUE TO MONITOR.
[2018-02-16] MEDS: MORPHINE SULFATE INJ 4 MG/ML DISP.SYRIN IV PRN (14:51)
--- NOTE | 2018-02-16 14:57 | NUR ---
MS RN PT OFF UNIT PT OFF UNIT FOR CT SCAN W/OUT CONTRAST. ADMINISTERED 2MG MORPHINE IVP FOR PAIN CONTROL DURING TRANSFER. BP: 125/71, HR: 91.
--- NOTE | 2018-02-16 15:15 | NUR ---
MS RN PT BACK ON UNIT PT BACK ON UNIT FROM CT SCAN. BED IS LOCKED AND IN LOWEST POSITION, SIDE RAILS UP X2, CALL LIGHT WITHIN REACH. GRANDDAUGHTER IS AT THE BEDSIDE.
[2018-02-16 16:00] VITALS: BP 96/62
--- NOTE | 2018-02-16 16:45 | NUR ---
MS RN PT VOIDED PT VOIDED INTO DIAPER POST AVALOS D/C AT 1100 AM.
[2018-02-16] MEDS: RIVAROXABAN 10 MG TABLET PO SCH (17:39)
[2018-02-16] MEDS ORDERED: IV LR 1000 ML 1,000 ML IV ONE (18:00)
--- NOTE | 2018-02-16 18:15 | NUR ---
MS RN CLOSING NOTE PT SITTING UP IN CHAIR, ALERT AND ORIENTED X4. DENIES N/V, CHEST PAIN, SOB. BREATHING IS EVEN AND UNLABORED ON ROOM AIR. R HAND #18G IV IS INFUSING NS @ 75ML/HR WITHOUT REDNESS OR SWELLING. PT TURNED AND REPOSITIONED Q2H FOR THE DURATION OF THE SHIFT. ALL NEEDS ATTENDED TO. BED IS LOCKED AND IN LOWEST POSITION, SIDE RAILS UP X2, CALL LIGHT IS WITHIN REACH. WILL ENDORSE TO TRANSFORMATION SPECIALIST RN FOR CONTINUITY OF CARE. Addendum: 02/16/18 at 1836 by CALIXTO SANTOS RN PLEASE DISREGARD, WRONG PATIENT.
--- NOTE | 2018-02-16 18:16 | NUR ---
MS RN CLOSING NOTE PT IN BED, ALERT AND ORIENTED X 2-3. DENIES N/V, CHEST PAIN, SOB. BREATHING IS EVEN AND UNLABORED ON ROOM AIR. L FA #18G IV IS INFUSING A ONE TIME ORDER OF LR @ 75ML/HR PER DR. CORMIER. AFTER LR IS COMPLETE, ORDERS TO START NS @ 75ML/HR FOR MAINTENANCE. R HIP DRESSING CHANGED TODAY BY PHYSICIAN CO FOUNDER & CEO AND IS CLEAN, DRY, AND INTACT. PEDAL PULSES PALPABLE BILATERALLY, BLE CAP REFILL <3 SECONDS, PT ABLE TO WIGGLE TOES AND MOVE FEET. PT REFUSED REGULAR REPOSITIONING Q2H DURING THE SHIFT. RISKS AND BENEFITS EXPLAINED, PT STILL REFUSED AND STATED "DO NOT TOUCH ME". BED IS LOCKED AND IN LOWEST POSITION, SIDE RAILS UP X2, BED ALARM IS ON, CALL LIGHT IS WITHIN REACH. WILL ENDORSE TO CREDIT RISK SPECIALIST RN FOR CONTINUITY OF CARE.
[2018-02-16] MEDS ORDERED: IV NS 0.9% 1,000 ML BAG IV PRN (18:30)
--- NOTE | 2018-02-16 19:10 | NUR ---
RN INITIAL NOTES Patient received in bed, granddaughter at bedside. Patient is alert, oriented x 2-3, forgetful at times, reminders given. Breathing even and unlabored. Not in any distress. SCDs in place. Peripheral IV infusing at 75mL/hr. Dressing on R hip intact, clean and dry. No complaints as of this time. Call richardson within reach. Bed in low, locked position. Patient stable as per morning RN. Will continue to monitor accordingly
[2018-02-16] MEDS: LEVOFLOXACIN 750 MG /D5W 150ML 750 MG in PREMIX 1 EA IV SCH (19:59)
[2018-02-16 20:00] VITALS: BP 110/66
--- NOTE | 2018-02-16 20:00 | NUR ---
RN NOTES Patient voided and asked to be changed. Needs attended to.
[2018-02-16] MEDS: LATANOPROST EYE DROP 0.005% 2.5 ML BOTTLE EACHEYE SCH (21:13)
[2018-02-16] MEDS: TRAZODONE 50 MG TABLET PO SCH (21:14)
[2018-02-17] VITALS (7 sets, daily range): BP systolic 101–153; BP diastolic 49–85
[2018-02-17] MEDS: ACETAMINOPHEN 325 MG TABLET PO SCH ×3 (05:35→17:36)
[2018-02-17] MEDS: IV NS 0.9% 1,000 ML IV PRN (06:25)
[2018-02-17 06:41] LABS: CALCIUM, SERUM 8.7 mg/dL (8.5-10.1); CARBON DIOXIDE 27 mmol/L (21-32); CHLORIDE 106 mmol/L (98-107); CREATININE 0.7 mg/dL (0.6-1.3); GLUCOSE 104 mg/dL (74-106); POTASSIUM 3.9 mmol/L (3.5-5.1); SODIUM SERUM 141 mmol/L (136-145); UREA NITROGEN, BLOOD 14 mg/dL (7-18)
--- NOTE | 2018-02-17 06:45 | NUR ---
RN CLOSING NOTES Patient in bed, still sleeping. Breathing even and unlabored. Not in any distress. Peripheral IV of NS infusing at 75mL/hr. No complaints as of this time. All needs attended to. All due medications given as ordered. Call richardson within reach. Bed in low, locked position. SCD's in place. Will endorse RENEA to oncoming RN.
--- NOTE | 2018-02-17 07:51 | NUR ---
MS RN OPENING NOTES RECEIVED PATIENT IN STABLE CONDITION. IN NO APPARENT DISTRESS. BEDSIDE RAILS ARE UPX2. BED IS LOCKED AND LOWERED. CALL LIGHT IS WITHIN REACH. IV LINE IS INTACT AND PATENT. WILL CONTINUE TO MONITOR PATIENT.
[2018-02-17] MEDS: BRIMONIDINE TARTRATE OPHT SOLN 5 ML BOTTLE EACHEYE SCH ×2 (09:06→17:34)
[2018-02-17] MEDS: TIMOLOL 0.5% SOLN OPHTH 5 ML BOTTLE EACHEYE SCH ×2 (09:06→17:34)
[2018-02-17] MEDS: CALCIUM CARB 600MG /VIT D 1 EACH TABLET PO SCH ×2 (09:09→17:36)
[2018-02-17] MEDS: Fluoxetine 10 mg capsule PO SCH (09:09)
[2018-02-17] MEDS: LISINOPRIL (10MG) 10 MG TABLET PO SCH (09:09)
[2018-02-17] MEDS: METOPROLOL TARTRATE 25 MG TABLET PO SCH ×2 (09:10→17:36)
[2018-02-17 09:35] LABS: BASOPHILS % (AUTO) 0.5 % (0.0-2.0); EOSINOPHILS % (AUTO) 2.3 % (0.0-6.0); HEMATOCRIT 21 % (33-45); LYMPHOCYTES % (AUTO) 22.3 % (20.0-44.0); MEAN CORPUSCULAR HGB CONC 32 g/dl (31.0-36.0); MEAN CORPUSCULAR VOLUME 93 fL (82-100); MONOCYTES # (AUTO) 0.4 /CMM (0.1-1.30); MONOCYTES % (AUTO) 10.2 % (2.0-12.0); NEUTROPHILS # (AUTO) 2.8 /CMM (1.8-8.9); NEUTROPHILS % (AUTO) 64.7 % (43.0-81.0); PLATELET COUNT (AUTO) 113 /CMM (150-450); RDW COEFFICIENT OF VARIATION 14.8 (11.5-15.0); RED BLOOD CELL COUNT(AUTO) 2.27 MIL/uL (4.0-5.2); WHITE BLOOD COUNT (AUTO) 4.3 K/uL (4.3-11.0)
[2018-02-17 09:40] LABS: HEMOGLOBIN 6.8 g/dL (11.5-14.8)
[2018-02-17 10:00] LABS: EOSINOPHILS % (MANUAL) 4 % (0-4); LYMPHOCYTES % (MANUAL) 17 % (16-48); MONOCYTES % (MANUAL) 7 % (0-11.0); NEUTROPHILS % (MANUAL) 72 (42-76)
[2018-02-17] MEDS: HYDROCODONE/APAP 5/325MG 1 EACH TABLET PO PRN ×2 (10:07→17:36)
[2018-02-17] MEDS: RIVAROXABAN 10 MG TABLET PO SCH (17:00)
--- NOTE | 2018-02-17 18:23 | NUR ---
MS RN CLOSING NOTES PATIENT IN STABLE CONDITION. IN NO APPARENT DISTRESS. BEDSIDE RAILS ARE UPX2. BED IS LOCKED AND LOWERED. CALL LIGHT IS WITHIN REACH. IV LINE IS INTACT AND PATENT. ALL NEEDS WERE MET. WILL ENDORSE CARE TO TRUCK DRIVER'S OFFSIDER NURSE FOR RENEA.
--- NOTE | 2018-02-17 19:30 | NUR ---
MS YONIS INITIAL NOTES RECEIVED REPORT FROM AM NURSE NASH WHILE WERE DOING ROUNDS AT THE SAME TIME. SEEN PT SITTING INSIDE HER BED WITH IVF NS TA 75ML/HR INFUSING AT THIS TIME. DX OF S/P RIGHT HIP FIXATION . WITH DVT PUMP ON BOTH LOWER LEGS. PT DENIES ANY PAIN OR ANY DISCOMFORT AT THIS TIME. ABLE TO USED THE CALL LIGHT SYSTEM EVEN PT LEGALLY BLIND. KEPT HER WARM AND COMFORTABLE AT ALL TIMES. BED IN LOW AND LOCK IN POSITION WITH SIDE RAILS X2 UP. WILL CONTINUE MONITORING. HAND
[2018-02-17] MEDS: LEVOFLOXACIN 750 MG /D5W 150ML 750 MG in PREMIX 1 EA IV SCH (20:43)
[2018-02-17] MEDS: LATANOPROST EYE DROP 0.005% 2.5 ML BOTTLE EACHEYE SCH (21:50)
[2018-02-17] MEDS: TRAZODONE 50 MG TABLET PO SCH (21:50)
--- NOTE | 2018-02-17 22:00 | NUR ---
ms eda notes routine meds given as ordered. kept her warm and comfortable at all times. will continue monitoring. place call light at reach.
[2018-02-18] MEDS: MORPHINE SULFATE INJ 4 MG/ML DISP.SYRIN IV PRN (00:14)
--- NOTE | 2018-02-18 00:30 | NUR ---
manager plant notes pt awake and complaining too much pain while 2 efficiency miner blasting tried to reposition her for comfort. offered pain meds, morphine 2 mg ivp given as ordered. refused to have her tylenol at this time. will continue monitoring. hand held her call light.
--- NOTE | 2018-02-18 01:09 | NUR ---
MS FUEL DOCK ATTENDANT NOTES PT RESTING AT THIS TIME WITH EYES CLOSED, RESPIRATION EVEN AND NON-LABORED.SEEMS COMFORTABLE AT THIS TIME. WILL CONTINUE MONITORING.
[2018-02-18] MEDS: IV NS 0.9% 1,000 ML IV PRN (05:43)
[2018-02-18] MEDS: ACETAMINOPHEN 325 MG TABLET PO SCH ×3 (05:48→11:12)
[2018-02-18 06:15] LABS: BASOPHILS % (AUTO) 0.6 % (0.0-2.0); EOSINOPHILS % (AUTO) 3.7 % (0.0-6.0); HEMATOCRIT 25 % (33-45); HEMOGLOBIN 8.3 g/dL (11.5-14.8); LYMPHOCYTES # (AUTO) 1.1 /CMM (0.8-4.8); LYMPHOCYTES % (AUTO) 21.1 % (20.0-44.0); MEAN CORPUSCULAR HGB CONC 33 g/dl (31.0-36.0); MEAN CORPUSCULAR VOLUME 93 fL (82-100); MONOCYTES # (AUTO) 0.5 /CMM (0.1-1.30); NEUTROPHILS # (AUTO) 3.5 /CMM (1.8-8.9); NEUTROPHILS % (AUTO) 65.6 % (43.0-81.0); PLATELET COUNT (AUTO) 150 /CMM (150-450); RDW COEFFICIENT OF VARIATION 15.8 (11.5-15.0); RED BLOOD CELL COUNT(AUTO) 2.72 MIL/uL (4.0-5.2); WHITE BLOOD COUNT (AUTO) 5.3 K/uL (4.3-11.0)
[2018-02-18 06:49] LABS: ALANINE AMINOTRANSFERASE 9 U/L (12-78); ALBUMIN 2.4 g/dL (3.4-5.0); ALKALINE PHOSPHATASE 48 U/L (46-116); ASPARTATE AMINOTRANSFERASE 21 U/L (15-37); BILIRUBIN,TOTAL 1.3 mg/dL (0.2-1.0); CALCIUM, SERUM 9.3 mg/dL (8.5-10.1); CARBON DIOXIDE 26 mmol/L (21-32); CHLORIDE 102 mmol/L (98-107); CREATININE 0.8 mg/dL (0.6-1.3); GLUCOSE 140 mg/dL (74-106); POTASSIUM 3.7 mmol/L (3.5-5.1); SODIUM SERUM 135 mmol/L (136-145); TOTAL PROTEIN, SERUM 5.6 g/dL (6.4-8.2); UREA NITROGEN, BLOOD 12 mg/dL (7-18)
--- NOTE | 2018-02-18 07:30 | NUR ---
MS RADIOLOGY INTERVENTIONAL PHYSICIAN CLOSING NOTES PT AWAKE AND ALERT ALL DUE MEDS GIVEN AND ALL NEEDS MET. IVF STILL INFUSING. NO SIGNS OF ANY ACUTE DISTRESS NOTED AT THIS TIME. ENDORSE TO AM NURSE FOR CONTINUITY OF CARE. PLACE CALL LIGHT AT REACH.
[2018-02-18 08:00] VITALS: BP 131/80
[2018-02-18] MEDS: Fluoxetine 10 mg capsule PO SCH (08:30)
[2018-02-18] MEDS: CALCIUM CARB 600MG /VIT D 1 EACH TABLET PO SCH (08:30)
[2018-02-18] MEDS: BRIMONIDINE TARTRATE OPHT SOLN 5 ML BOTTLE EACHEYE SCH (08:30)
[2018-02-18] MEDS: TIMOLOL 0.5% SOLN OPHTH 5 ML BOTTLE EACHEYE SCH (08:30)
[2018-02-18] MEDS: LISINOPRIL (10MG) 10 MG TABLET PO SCH (08:30)
[2018-02-18] MEDS: METOPROLOL TARTRATE 25 MG TABLET PO SCH (08:31)
--- NOTE | 2018-02-18 15:04 | NUR ---
PATIENT REFUSED FLU SHOT. PATIENT STATES SHE WILL GET IT OUTSIDE OF THE HOSPITAL AT A DIFFERENT TIME.
[2018-02-18 16:00] VITALS: BP 145/87
--- NOTE | 2018-02-18 16:58 | NUR ---
PATIENT DISCHARGED IN STABLE CONDITION. IN NO APPARENT DISTRESS. ALL NEEDS WERE MET. EXITCARE PROVIDED TO THE PATIENT. REPORT GIVEN TO TANESHA GARDNER. IV LINE WAS REMOVED. ID BAND WAS REMOVED. PATIENT ESCORTED OUT OF THE FACILITY VIA AMBULANCE. PRESCRIPTION GIVEN TO PATIENT.
== END 2018-02-18 17:05 | DRG 480 ==
LOC: ER 15:53 → MED 17:38
PROVIDERS: ADMIT Nurse Practitioner Acute Care; ATTEND Nurse Practitioner Acute Care
PROC: 0QS606Z Reposition Right Upper Femur with Intramedullary Internal Fixation Device, Open Approach (ICD-10-PCS; principal; 2018-02-14 13:00)
PROC: 30233N1 Transfusion of Nonautologous Red Blood Cells into Peripheral Vein, Percutaneous Approach (ICD-10-PCS; 2018-02-17)
DX: S72.141A Displaced intertrochanteric fracture of right femur, initial encounter for closed fracture (principal); G92 Toxic encephalopathy; N39.0 Urinary tract infection, site not specified; F05 Delirium due to known physiological condition; I48.2 Chronic atrial fibrillation; G62.9 Polyneuropathy, unspecified; H54.7 Unspecified visual loss; D64.9 Anemia, unspecified; E80.6 Other disorders of bilirubin metabolism; D63.8 Anemia in other chronic diseases classified elsewhere; I10 Essential (primary) hypertension; W18.30XA Fall on same level, unspecified, initial encounter; Y93.9 Activity, unspecified; Y92.520 Airport as the place of occurrence of the external cause; F32.9 Major depressive disorder, single episode, unspecified; R79.89 Other specified abnormal findings of blood chemistry; K80.20 Calculus of gallbladder without cholecystitis without obstruction; I51.7 Cardiomegaly; Z79.01 Long term (current) use of anticoagulants
CPT/HCPCS: 36415; 70450-TC; 71045-TC; 73502; 76700-TC; 80048-TC; 80053-TC; 80061-TC; 80076-TC; 81000-TC; 82962-TC; 83540-TC; 83605-TC; 83735-TC; 84100-TC; 84439-TC; 84443-TC; 84484-TC; 85025-TC; 85730-TC; 86850-TC; 86921-TC; 87081-TC; 87086-TC; 93307-TC; 97110-TC; 97112-TC; 97530-TC; A4216; A4606; A6402; J0690; J1956; J2175; J2250; J2270; J2405; J2704; J2710; J3010; J3490; J7030; J7050; J7060; J7120; P9016-BL; Z7610